=== PATIENT | female | born 1960 | race Caucasian/White ===

== ENCOUNTER 2017-08-02 11:06 | Outpatient (CLI) | payer BC ==
--- NOTE | 2017-08-02 13:09 | RAD ---
LUMBAR SPINE SERIES: Technique: Neutral, flexion, and extension lateral radiographs of the lumbar spine. Date: 08-02-17 History: Back pain at night after work, low back pain. FINDINGS: The neutral lateral examination demonstrates no significant anterolisthesis or retrolisthesis. There is multilevel lower lumbar spine facet hypertrophy. With flexion, there is anterolisthesis of L4 on L5 measuring in the 5 mm range. With extension, this anterolisthesis is not visualized. At T9-10, T10-11, T11-12, and T12-L1 there is disc space narrowing with degenerative endplate change and anterior osteophyte formation. IMPRESSION: Minimal anterolisthesis measuring in the 4-5 mm range at the L4-5 level with flexion. POS: RUFUS
--- NOTE | 2017-08-02 13:29 | CT ---
CT LUMBAR SPINE NONCONTRAST: Date: 08-02-17 History: 56-year-old female with low back pain. M54.5 Comparison: None. FINDINGS: Calcified gallstones are partially visualized. There are Baastrup's changes between the spinous proce sses from T12-L1 through L3-4. Vertebral body heights are maintained. Normal lordosis is maintained. There is no spondylolisthesis or spondylolysis. Mild to moderate disc space narrowing at L5-S1. No se osman disc space narrowing at any level. No scoliosis. There are five lumbar type vertebrae. There are degenerative facet changes at the mid and lower levels. No severe central spinal canal stenosis at a ny level. There is mild central spinal canal stenosis at L3-4. Mild to moderate left neural foraminal stenosis at L3-4 and L4-5. Degenerative facet changes are as f ollows: L3-4: Moderate bilaterally, right greater than left. L4-5: Moderate to severe bilaterally. L5-S1: Moderate to severe on the right and moderate on the left. IMPRESSION: 1. 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 2. Mild to moderate left neural foraminal stenosis at a few levels. 3. No severe central spinal canal stenosis at any level. 4. Cholelithiasis. 5. 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 POS: RUFUS
== END 2017-08-02 11:07 | disposition home or self-care (01) ==
LOC: TBSIIMAG 11:06
PROVIDERS: ATTEND Neurological Surgery
DX: M54.5 Low back pain (principal); M47.896 Other spondylosis, lumbar region; M99.83 Other biomechanical lesions of lumbar region; K80.20 Calculus of gallbladder without cholecystitis without obstruction; M48.20 Kissing spine, site unspecified
CPT/HCPCS: 72100; 72131

== ENCOUNTER 2017-08-23 15:00 | Outpatient (CLI) | payer BC | END 2017-08-23 15:01 | disposition home or self-care (01) | LOC: BICMAMMO 15:00 | PROVIDERS: ATTEND Physician Assistant | DX: Z12.31 Encounter for screening mammogram for malignant neoplasm of breast (principal) | CPT/HCPCS: 77063; 77067 ==

== ENCOUNTER 2018-11-01 15:15 | Outpatient (CLI) | payer BC ==
--- NOTE | 2018-11-01 15:53 | MMO ---
Bilateral MAMMO Bilat Screen [facility]. CLINICAL HISTORY: Patient is 57 years old and is seen for screening. The patient has no family history of breast cancer. The patient has no personal history of cancer. VIEWS: The views performed were: bilateral craniocaudal with tomosynthesis and bilateral mediolateral oblique with tomosynthesis. FILMS COMPARED: The present examination has been compared to a prior imaging study performed at [facility] on 08/23/2017. MAMMOGRAM FINDINGS: There are scattered fibroglandular densities. Benign calcifications are noted bilaterally. There are no suspicious masses, suspicious calcifications, or new areas of architectural distortion. IMPRESSION: THERE IS NO MAMMOGRAPHIC EVIDENCE OF MALIGNANCY. A ROUTINE FOLLOW-UP MAMMOGRAM IN 1 YEAR IS RECOMMENDED. THE RESULTS OF THIS EXAM WERE SENT TO THE PATIENT. ACR BI-RADS Category 2 - Benign finding MAMMOGRAPHY NOTE: 1. A negative mammogram report should not delay a biopsy if a dominant of clinically suspicious mass is present. 2. Approximately 10% to 15% of breast cancers are not detected by mammography. 3. Adenosis and dense breasts may obscure an underlying neoplasm.
== END 2018-11-01 15:16 | disposition home or self-care (01) ==
LOC: BICMAMMO 15:15
PROVIDERS: ATTEND Family Medicine
DX: Z12.31 Encounter for screening mammogram for malignant neoplasm of breast (principal)
CPT/HCPCS: 77063; 77067

== ENCOUNTER 2020-10-23 13:09 | Outpatient (CLI) | payer BC | END 2020-10-23 13:10 | disposition home or self-care (01) | LOC: BICMAMMO 13:09 | PROVIDERS: ATTEND Family Medicine | DX: Z12.31 Encounter for screening mammogram for malignant neoplasm of breast (principal) | CPT/HCPCS: 77063; 77067 ==

== ENCOUNTER 2020-11-08 21:04 | Emergency (ER) | payer BC, OTHER ==
[2020-11-08] MEDS ORDERED: Morphine 4 MG/ML VIAL ONE ×2 (21:43→23:15)
[2020-11-08] MEDS ORDERED: Boostrix 0.5 ML (Tdap) VIAL ONE (21:43)
[2020-11-08] MEDS ORDERED: Ondansetron PF 4 MG/2 ML Vial ONE (21:43)
[2020-11-08] MEDS ORDERED: Bacitracin 1 PK ONE (23:11)
[2020-11-08] MEDS ORDERED: Lidocaine 1% w/Epinephrine 1:100K 20 ML VIAL ONE (23:11)
[2020-11-09] MEDS ORDERED: Morphine 4 MG/ML VIAL ONE
== END 2020-11-09 00:25 | disposition home or self-care (01) ==
LOC: ERS 21:04
DX: S02.2XXA Fracture of nasal bones, initial encounter for closed fracture (principal); S42.351A Displaced comminuted fracture of shaft of humerus, right arm, initial encounter for closed fracture; S01.81XA Laceration without foreign body of other part of head, initial encounter; I10 Essential (primary) hypertension; E78.00 Pure hypercholesterolemia, unspecified; Z79.899 Other long term (current) drug therapy; W01.0XXA Fall on same level from slipping, tripping and stumbling without subsequent striking against object, initial encounter
CPT/HCPCS: 12052; 29105; 70450; 70486; 72125; 90471; 90715; 96374; 96375; 96376; J2270; J2405

== ENCOUNTER 2020-11-12 20:20 | Observation (INO) | payer BC, OTHER ==
[2020-11-12] MEDS ORDERED: Morphine 4 MG/ML VIAL ONE (21:19)
[2020-11-12] MEDS ORDERED: Ketorolac Tromethamine 30 MG/ML VIAL ONE (21:25)
[2020-11-12] MEDS ORDERED: Dextrose 5% in Water 1,000 ML IV PRN (21:26)
[2020-11-12] MEDS ORDERED: Dextrose 50% Abboject 50 ML SYRINGE SLOW IVP PRN (21:26)
[2020-11-12] MEDS ORDERED: Ondansetron PF 4 MG/2 ML Vial IVP PRN (21:26)
[2020-11-12] MEDS ORDERED: hydrALAZINE 20 MG/ML VIAL SLOW IVP PRN (21:26)
[2020-11-12] MEDS ORDERED: Ondansetron ODT 4 MG TAB PO PRN (21:26)
[2020-11-12] MEDS ORDERED: Cyclobenzaprine 10 MG TAB PO PRN (21:29)
[2020-11-12 22:01] LABS: #Basophils 0.1 thou/uL (0.0-0.2); #Eosinphils 0.5 thou/uL (0.0-0.7); #Lymphocytes 4.3 thou/uL (1.20-3.40); #Monocytes 0.8 thou/uL (0.11-0.59); #Neutrophils 7.1 thou/uL (1.40-6.50); %Basophils 0.8 % (0.0-1.0); %Eosinophils 3.9 % (0.0-10.0); %Lymphocytes 33.7 % (21.0-51.0); %Monocytes 5.9 % (0.0-10.0); %Neutrophils 55.6 % (42.0-75.0); Hemoglobin 13.5 g/dL (12.0-16.0); Mean Corpuscular HGB CONC 34.5 g/dL (32.0-36.0); Mean Corpuscular Hemoglobin 30.6 pg (27.0-31.0); Mean Corpuscular Volume 88.7 fL (78.0-98.0); Mean Platelet Volume 8.2 fL (7.4-10.4); Platelet Count 306 thou/uL (130-400); RBC Distribution Width 11.2 % (11.5-14.5); Red Blood Cell (RBC) Count 4.42 mill/uL (4.20-5.40); White Blood Cell (WBC) Count 12.8 thou/uL (4.8-10.8)
[2020-11-12 22:25] LABS: ALT (SGPT) 15 U/L (8-55); AST (SGOT) 20 U/L (5-34); Albumin 4.1 g/dL (3.5-5.0); Alkaline Phosphatase 104 U/L (40-110); Anion Gap 15 mmol/L (10-20); BUN (Urea Nitrogen) 14 mg/dL (9.8-20.1); Bilirubin, Total 0.9 mg/dL (0.2-1.2); Calc. Creatinine Clearance 0 mL/min (70-130); Carbon Dioxide 29 mmol/L (22-29); Chloride 98 mmol/L (98-107); Globulin 3.6 g/dL (2.4-3.5); Glucose 110 mg/dL (70-105); Potassium 3.6 mmol/L (3.5-5.1); Protein, Total 7.7 g/dL (6.0-8.3); Sodium 138 mmol/L (136-145)
[2020-11-12] MEDS ORDERED: Morphine 4 MG/ML VIAL SLOW IVP PRN (22:52)
[2020-11-13] MEDS: Ketorolac Tromethamine 30 MG/ML VIAL IVP SCH ×2 (00:03→06:01)
[2020-11-13] MEDS: traMADol HCl 50 MG TAB PO SCH ×2 (00:04→06:01)
[2020-11-13] MEDS: Acetaminophen 500 MG TAB PO SCH ×3 (00:06→09:49)
[2020-11-13 00:38] VITALS: BMI 31.8
[2020-11-13 05:36] LABS: SARS-CoV-2 PCR by NAA Not Detected (NotDetected)
[2020-11-13] MEDS ORDERED: traMADol HCl 50 MG TAB PO PRN (07:12)
[2020-11-13] MEDS ORDERED: Ibuprofen 800 MG TAB PO PRN (07:15)
[2020-11-13] MEDS ORDERED: Ibuprofen 200 MG TAB PO PRN (07:23)
[2020-11-13] MEDS ORDERED: traMADol HCl 50 MG TAB PO SCH (08:00)
[2020-11-13] MEDS ORDERED: Polyethylene Glycol 3350 17 GM Packet PO SCH (09:00)
[2020-11-13] MEDS ORDERED: Famotidine 20 MG TAB PO SCH (09:00)
[2020-11-13] MEDS ORDERED: Senokot S 8.6-50 MG TAB PO SCH (09:00)
[2020-11-13] MEDS ORDERED: Gabapentin 300 MG CAP PO SCH ×2 (09:00)
[2020-11-13] MEDS ORDERED: Gabapentin 100 MG CAP PO SCH (09:00)
[2020-11-13] MEDS: Morphine 4 MG/ML VIAL SLOW IVP PRN ×2 (10:44→10:59)
[2020-11-13] MEDS ORDERED: Morphine 4 MG/ML VIAL SLOW IVP SCH (11:45)
[2020-11-13 12:35] VITALS: BP 139/75; TEMP 98.3
[2020-11-13] MEDS ORDERED: Pravastatin Sodium 20 MG TAB PO SCH (21:00)
[2020-11-13] MEDS ORDERED: Lisinopril 20 MG TAB PO SCH (21:00)
[2020-11-13] MEDS ORDERED: Oxybutynin 5 MG TAB PO SCH (21:00)
== END 2020-11-13 14:16 | disposition home or self-care (01) ==
LOC: ERS 20:20 → SJJU 21:26
PROVIDERS: ADMIT Specialist; ATTEND Specialist
DX: G89.11 Acute pain due to trauma (principal); S42.344A Nondisplaced spiral fracture of shaft of humerus, right arm, initial encounter for closed fracture; I10 Essential (primary) hypertension; E78.5 Hyperlipidemia, unspecified; N32.81 Overactive bladder; Z79.899 Other long term (current) drug therapy; Z20.822 Contact with and (suspected) exposure to COVID-19; W01.0XXA Fall on same level from slipping, tripping and stumbling without subsequent striking against object, initial encounter
CPT/HCPCS: 29105; 80053; 85025; 87635; 96374; 96375; 96376; G0378; J1885; J2270; U0003; U0005

== ENCOUNTER 2020-11-27 09:11 | Outpatient (CLI) | payer BC | END 2020-11-27 09:12 | disposition home or self-care (01) | LOC: BICMAMMO 09:11 | PROVIDERS: ATTEND Family Medicine | DX: Z13.820 Encounter for screening for osteoporosis (principal); Z78.0 Asymptomatic menopausal state | CPT/HCPCS: 77080 ==

== ENCOUNTER 2023-05-04 13:25 | Outpatient (CLI) | payer BC | END 2023-05-04 13:26 | disposition home or self-care (01) | LOC: BICMAMMO 13:25 | PROVIDERS: ATTEND Family Medicine | DX: Z12.31 Encounter for screening mammogram for malignant neoplasm of breast (principal) | CPT/HCPCS: 77063; 77067 ==

== ENCOUNTER 2024-09-13 09:53 | Outpatient (CLI) | payer BC | END 2024-09-13 09:54 | disposition home or self-care (01) | LOC: BICRAD 09:53 | PROVIDERS: ATTEND Family Medicine | DX: M79.671 Pain in right foot (principal) ==